=== PATIENT | female | born 1995 | race Caucasian/White ===

== ENCOUNTER 2016-09-21 10:53 | Emergency (ER) | payer BC, OTHER ==
[~2016-09-21] VITALS: Ht 162.6 cm; Wt 93.0 kg
[~2016-09-21 10:53] MED LIST: CETI10CA PO; CETI10TA17 PO; DCS100C PO; FLT4413 INH; HYDR-3714 PO; IBUP800T26 PO; LEVA15HF2 IH; METO25TA PO; MNTL10T PO; MONT10TA24 PO; MTP25TSR PO; RANI300T4 PO; RNT150T PO
--- NOTE | 2016-09-21 12:03 | ED Headache ---
General Chief Complaint: Head/Cervical Problems Stated Complaint: HEADACHE/ELEV BP Nursing Triage Note: PT C/O HICKS AND HTN SINCE THIS AM. Nursing Sepsis Screen: No Definite Risk Source: patient, family Exam Limitations: no limitations History of Present Illness Time seen by provider: 12:02 Initial Comments To ER with reports of a frontal headache and high blood pressure that occurred this morning. She states that she's had frontal headache for the past 2-3 days intermittently. She denies fevers, injury, nasal congestion. She states the pain was severe this morning and her blood pressure was 160/90 which was abnormal for her. She took some Tylenol and Motrin at home and her pain is rated at 2 out of 10. no personal or family history of migraines. She did have some intermittent nausea and equal bowel movements but it was not diarrhea. States that her grandmother has colitis and she is concerned she may also have colitis Timing/Duration: waxing and waning Severity/Quality: constant, pressure, throbbing Location: frontal Prior Headaches/Recent Trauma: no recent headache/trauma Associated Symptoms: denies symptoms nausea/vomiting Allergies and Home Medications Allergies Coded Allergies: codeine (Verified Allergy, Intermediate, 09/27/13) Home Medications Cetirizine Hcl 10 Mg Capsule 10 MG PO DAILY (Reported) Metoprolol Succinate 25 Mg Tab.sr.24h 25 MG PO DAILY (Reported) Constitutional: see HPINo chills, No fever Eyes: No Symptoms Reported Ears, Nose, Mouth, Throat: no symptoms reported Respiratory: no symptoms reported Cardiovascular: no symptoms reported Gastrointestinal: No abdominal pain Genitourinary: no symptoms reported Musculoskeletal: no symptoms reported Skin: no symptoms reported Psychiatric/Neurological: No Symptoms Reported Past Lvddzyo-Jigudq-Nxdmyz Hx Patient Social History Alcohol Use: Denies Use Recreational Drug Use: No Smoking Status: Never a Smoker Recent Foreign Travel: No Contact w/Someone Who Travel: No Recent Infectious Disease Expo: No Recent Hopitalizations: No Physical Abuse Screen: No Sexual Abuse: No Immunizations Up To Date Date of Influenza Vaccine: Jun 21, 2016 Surgeries HX Surgeries: Yes (TEETH) Surgeries: Appendectomy Respiratory Hx Respiratory Disorders: Yes Respiratory Disorders: Asthma Cardiovascular Hx Cardiac Disorders: Yes Cardiac Disorders: Hypertension Neurological Hx Neurological Disorders: No Genitourinary Hx Genitourinary Disorders: Yes Genitourinary Disorders: UTI-Chronic Gastrointestinal Hx Gastrointestinal Disorders: No Gastrointestinal Disorders: Gastroesophageal Reflux Musculoskeletal Hx Musculoskeletal Disorders: No Endocrine Hx Endocrine Disorders: No HEENT HX ENT Disorders: No Cancer Hx Cancer: No Psychosocial Hx Psychiatric Problems: No Integumentary HX Skin/Integumentary Disorder: No Blood Transfusions Hx Blood Disorders: No Adverse Reaction to a Blood Tr: No Family Medical History Family Medial History: Cancer 03 FATHER (prostate) 03 MOTHER (thyroid) Family history: Thyroid disorder 03 MOTHER (thyroid cancer) Prostate cancer Physical Exam Vital Signs Vital Sign - Last 12Hours 09/21/16 11:35 Temp 97.0 Pulse 89 Resp 16 B/P 145/96 Pulse Ox 98 O2 Delivery Room Air Capillary Refill : Less Than 3 Seconds General Appearance: WD/WN no apparent distress HEENT: PERRL/EOMI normal ENT inspection TMs normal Neck: non-tender full range of motion Respiratory: normal breath sounds no respiratory distress no accessory muscle use Gastrointestinal: normal bowel sounds non tender soft Extremities: normal range of motion non-tender Psychiatric: alert oriented x 3 Crainal Nerves: normal hearing normal speech PERRL Skin: normal color warm/dry Progress/Results/Core Measures Results/Orders Lab Results Laboratory Tests Test 09/21/16 12:13 09/21/16 12:22 Range/Units Anion Gap 6 5-14 MMOL/L BUN/Creatinine Ratio 23 Basophils # (Auto) 0.0 0.0-0.1 10^3/uL Basophils (%) (Auto) 0 0-10 % Blood Urea Nitrogen 18 7-18 MG/DL Calcium Level 8.9 8.5-10.1 MG/DL Carbon Dioxide Level 23 21-32 MMOL/L Chloride Level 109 H 98-107 MMOL/L Creatinine 0.78 0.60-1.30 MG/DL Eosinophils # (Auto) 0.1 0.0-0.3 10^3/uL Eosinophils (%) (Auto) 1 0-10 % Erythrocyte Sedimentation Rate 22 H 0-20 MM/HR Estimat Glomerular Filtration Rate > 60 Glucose Level 98 70-105 MG/DL Hematocrit 39 35-52 % Hemoglobin 12.8 11.5-16.0 G/DL Lymphocytes # (Auto) 1.3 1.0-4.0 X 10^3 Lymphocytes (%) (Auto) 10 L 12-44 % Mean Corpuscular Hemoglobin 30 25-34 PG Mean Corpuscular Hemoglobin Concent 33 32-36 G/DL Mean Corpuscular Volume 92 80-99 FL Mean Platelet Volume 10.2 7.4-10.4 FL Monocytes # (Auto) 0.7 0.0-1.0 X 10^3 Monocytes (%) (Auto) 5 0-12 % Neutrophils # (Auto) 11.2 H 1.8-7.8 X 10^3 Neutrophils (%) (Auto) 84 H 42-75 % Platelet Count 345 130-400 10^3/uL Potassium Level 4.0 3.6-5.0 MMOL/L Red Blood Count 4.27 L 4.35-5.85 10^6/uL Red Cell Distribution Width 14.4 10.0-14.5 % Sodium Level 138 135-145 MMOL/L Thyroid Stimulating Hormone (TSH) 2.03 0.35-4.94 UIU/ML White Blood Count 13.3 H 4.3-11.0 10^3/uL Urine Bacteria TRACE /HPF Urine Bilirubin NEGATIVE NEGATIVE Urine Casts NONE /LPF Urine Clarity CLEAR Urine Color YELLOW Urine Crystals NONE /LPF Urine Culture Indicated NO Urine Glucose (UA) NEGATIVE NEGATIVE Urine Ketones NEGATIVE NEGATIVE Urine Leukocyte Esterase NEGATIVE NEGATIVE Urine Mucus NEGATIVE /LPF Urine Nitrite NEGATIVE NEGATIVE Urine Protein NEGATIVE NEGATIVE Urine RBC RARE /HPF Urine RBC (Auto) NEGATIVE NEGATIVE Urine Specific [place] 1.015 L 1.016-1.022 Urine Squamous Epithelial Cells 0-2 /HPF Urine Urobilinogen NORMAL NORMAL MG/DL Urine WBC NONE /HPF Urine pH 6.5 5-9 My Orders Orders-ANNA ASH PHOTOCOPYING EQUIPMENT MECHANIC Cbc With Automated Diff (09/21/16 11:59) Ua Culture If Indicated (09/21/16 11:59) Urine Bedside (09/21/16 11:59) Basic Metabolic Panel (09/21/16 11:59) Erythrocyte Sedimentation Rate (09/21/16 11:59) Ct Head Wo (09/21/16 11:59) Thyroid Stimulating Hormone (09/21/16 11:59) Vital Signs/I&O Vital Sign - Last 12Hours 09/21/16 11:35 Temp 97.0 Pulse 89 Resp 16 B/P 145/96 Pulse Ox 98 O2 Delivery Room Air Blood Pressure Mean: 112 Diagnostic Imaging Diagonstic Imaging: CT Plain Films/CT/US/NM/MRI: head Comments NAME: JUAN SERRA [facility] REC#: [id number] PT STATUS: REG ER : 1995 PHYSICIAN: ANNA ASH APRN ADMIT DATE: 09/21/16/ER Signed Date of Exam:09/21/16 CT HEAD WO PROCEDURE: CT head without contrast. TECHNIQUE: Multiple contiguous axial images were obtained through the brain without the use of intravenous contrast. INDICATION: Elevated blood pressure. Headache. FINDINGS: There is no intracranial hemorrhage, edema, or mass effect. The brain parenchyma and verduzco/white matter differentiation are preserved. There is no hydrocephalus. No extra-axial fluid collection is seen. The calvarium, paranasal sinuses, and orbits (visualized portions) appear grossly unremarkable. IMPRESSION: Unremarkable exam. Dictated by: Dictated on workstation # [id number] Dict: 09/21/16 1235 Trans: 09/21/16 1240 [id number] Interpreted by: JACQUELIN CARRILLO MD Electronically signed by: JACQUELIN CARRILLO MD 09/21/16 1242 Departure Impression Impression: Primary Impression: Acute headache Qualified Code: G44.209 - Tension-type headache, unspecified, not intractable Disposition: HOME, SELF-CARE Condition: Stable Departure-Patient Inst. Decision time for Depature: 12:56 Referrals: DAVID METCALF MD (PCP/Family) Primary Care Physician Patient Instructions: Headache, Adult (DC) Add. Discharge Instructions: 1. Return to ER for any concerns 2. Medication as directed 3. Follow-up with your doctor later this week All discharge instructions reviewed with patient and/or family. Voiced understanding. Scripts Butalb/Acetaminophen/Caffeine (Fioricet 50-300-40 mg Capsule)1 Each Capsule1 Each PO Q4H PRN severe headache #5 CAP Prov:ANNA ASH APRN 09/21/16 Work/School Note: Work Release Form Date Seen in the Emergency Department: Sep 21, 2016 Return to Work: Sep 22, 2016 Restrictions: No Restrictions ANNA ASH APRN Sep 21, 2016 12:03
[2016-09-21 12:18] LABS: BASOPHILS % (AUTO) 0 % (0-10); EOSINOPHILS # (AUTO) 0.1 10^3/uL (0.0-0.3); EOSINOPHILS % (AUTO) 1 % (0-10); LYMPHOCYTES # (AUTO) 1.3 X 10^3 (1.0-4.0); LYMPHOCYTES % (AUTO) 10 % (12-44); MEAN CORPUSCULAR HEMOGLOBIN 30 PG (25-34); MEAN CORPUSCULAR HGB CONC 33 G/DL (32-36); MEAN CORPUSCULAR VOLUME 92 FL (80-99); MEAN PLATELET VOLUME 10.2 FL (7.4-10.4); MONOCYTES # (AUTO) 0.7 X 10^3 (0.0-1.0); MONOCYTES % (AUTO) 5 % (0-12); NEUTROPHILS # (AUTO) 11.2 X 10^3 (1.8-7.8); NEUTROPHILS % (AUTO) 84 % (42-75); PLATELET COUNT 345 10^3/uL (130-400); RED BLOOD COUNT 4.27 10^6/uL (4.35-5.85); RED CELL DISTRIBUTION WIDTH 14.4 % (10.0-14.5); WHITE BLOOD COUNT 13.3 10^3/uL (4.3-11.0)
[2016-09-21 12:29] LABS: BILIRUBIN,URINE NEGATIVE (NEGATIVE); KETONES,URINE NEGATIVE (NEGATIVE); LEUKOCYTE ESTERASE ,URINE NEGATIVE (NEGATIVE); NITRITE,URINE NEGATIVE (NEGATIVE); PH,URINE 6.5 (5-9); PROTEIN,URINE NEGATIVE (NEGATIVE); UROBILINOGEN,URINE NORMAL (NORMAL)
[2016-09-21 12:32] LABS: ANION GAP 6 MMOL/L (5-14); BLOOD UREA NITROGEN 18 MG/DL (7-18); BUN/CREATININE RATIO 23; CALCIUM 8.9 MG/DL (8.5-10.1); CARBON DIOXIDE 23 MMOL/L (21-32); CHLORIDE 109 MMOL/L (98-107); CREATININE SERUM 0.78 MG/DL (0.60-1.30); GFR ESTIMATED > 60; GLUCOSE 98 MG/DL (70-105); SODIUM 138 MMOL/L (135-145)
[2016-09-21 12:37] LABS: SQUAMOUS EPITHELIAL CELL,UR 0-2 /HPF
[2016-09-21 12:40] LABS: ERYTHROCYTE SEDIMENTATION RATE 22 MM/HR (0-20)
--- NOTE | 2016-09-21 12:40 | Diagnostic Imaging Report ---
PROCEDURE: CT head without contrast. TECHNIQUE: Multiple contiguous axial images were obtained through the brain without the use of intravenous contrast. INDICATION: Elevated blood pressure. Headache. FINDINGS: There is no intracranial hemorrhage, edema, or mass effect. The brain parenchyma and verduzco/white matter differentiation are preserved. There is no hydrocephalus. No extra-axial fluid collection is seen. The calvarium, paranasal sinuses, and orbits (visualized portions) appear grossly unremarkable. IMPRESSION: Unremarkable exam. Dictated by: Dictated on workstation # [id number]
[2016-09-21 12:54] LABS: THYROID STIMULATING HORMONE 2.03 UIU/ML (0.35-4.94)
[2016-09-21] MEDS ORDERED: BUTA1CAP39 PO (12:57)
[2016-09-21 13:06] VITALS: BP 145/96
== END 2016-09-21 13:06 | disposition home or self-care (01) ==
LOC: EDUNIT# 10:53 → ER 10:55
DX: R51 Headache (principal); I10 Essential (primary) hypertension; Z79.899 Other long term (current) drug therapy
CPT/HCPCS: 36415; 70450; 80048; 81000; 84443; 84703; 85025; 85652

== ENCOUNTER → 2016-10-12 | Outpatient (CLI) | payer OTHER ==
[~2016-10-12] MED LIST changes: +BUTA1CAP39 PO
--- NOTE | 2016-10-12 12:55 | Diagnostic Imaging Report ---
Renal ultrasound. INDICATION: Essential hypertension. Rule out reflux. FINDINGS: The right kidney is 11.2 cm and the left kidney is 8.4 cm in length. There is no hydronephrosis. There is a 3 x 2.4 cm hypoechoic lesion seen in the mid left kidney of uncertain etiology. No definite internal vascularity is seen with color Doppler. This is not seen on transverse images and is possibly artifactual or related to irregularity of the renal cortex from scarring. The urinary bladder appears unremarkable. IMPRESSION: 1. No hydronephrosis. 2. A 3 cm hypoechoic lesion seen in the mid left kidney not well demonstrated on transverse images could be secondary to lobulated kidney contour and scarring rather than a true mass. Correlation with abdominal MRI without and with contrast/kidney mass protocol is recommended. Dictated by: Dictated on workstation # [id number]
== END ==
LOC: RAD 11:42
PROVIDERS: ATTEND Family Medicine
DX: I10 Essential (primary) hypertension (principal); Z87.448 Personal history of other diseases of urinary system; N28.9 Disorder of kidney and ureter, unspecified
CPT/HCPCS: 76770

== ENCOUNTER → 2016-10-19 | Outpatient (CLI) | payer OTHER ==
[~2016-10-19] MED LIST changes: +GADOBUTROL 10 MMOL/10 ML (GADAVIST) VIAL IV ONE
--- NOTE | 2016-10-19 12:21 | Diagnostic Imaging Report ---
PROCEDURE: MR imaging abdomen with and without contrast. TECHNIQUE: Multiplanar, multisequence MR imaging of the abdomen was performed with and without contrast. INDICATION: Left kidney mass. CONTRAST: 10 mL of Gadavist is administered intravenously. FINDINGS: There is a lobulated appearance of the contour of the kidneys with the left kidney smaller than the right kidney and with multiple calyceal ectasia and diverticula seen in the areas of scarring. This is probably sequela of a prior UTIs. As a result of the multiple cortical focal areas of thinning and scarring, there is a lobulated contour to the kidneys. There is no discrete mass, however, that has a distinct T1 or T2 signal abnormality or different pattern of the enhancement compared to the rest of the parenchyma to suggest a mass. The findings seen on recent ultrasound in the left kidney are probably related to imaging of an area of scar or calyceal diverticulum. The abdominal aorta is normal in caliber. No para-aortic significantly enlarged lymph nodes are seen. There is no bone marrow signal abnormality seen. The spleen is not enlarged. The visualized portions of the liver demonstrate no significant abnormality. The pancreas appears unremarkable. IMPRESSION: There are multiple scars in the kidneys with ocnl-lg-bzvppqwn atrophy of the left kidney. Multiple calyceal diverticula are also seen secondary to scarring. This is probably sequela of old recurrent infections. No hydronephrosis. No suspicious mass identified. Dictated by: Dictated on workstation # [id number]
== END ==
LOC: RAD 10:08
PROVIDERS: ATTEND Family Medicine
DX: N26.1 Atrophy of kidney (terminal) (principal); N28.89 Other specified disorders of kidney and ureter
CPT/HCPCS: 74183

== ENCOUNTER → 2018-10-31 | Outpatient (CLI) | payer OTHER ==
[2018-10-31 15:10] LABS: BUN/CREATININE RATIO 9; CALCIUM 9.1 MG/DL (8.5-10.1); CARBON DIOXIDE 23 MMOL/L (21-32); CHLORIDE 107 MMOL/L (98-107); CREATININE SERUM 1.01 MG/DL (0.60-1.30); GFR ESTIMATED > 60; GLUCOSE 93 MG/DL (70-105); POTASSIUM 3.7 MMOL/L (3.6-5.0); SODIUM 138 MMOL/L (135-145)
--- NOTE | 2018-10-31 15:18 | Diagnostic Imaging Report ---
PROCEDURE: CT urinary tract, rule out kidney stone. TECHNIQUE: Multiple contiguous axial images were obtained through the abdomen and pelvis without the use of intravenous contrast. INDICATION: Left flank pain. COMPARISON: 09/27/2013 FINDINGS: Evaluation of the abdominal viscera is mildly limited without contrast. Lower chest: The lung bases are clear. No pericardial or pleural effusion. Peritoneum: No free intraperitoneal air or fluid. Liver and biliary system: Unenhanced liver is normal. Layering hyperdensity within the gallbladder may represent sludge or stones. No biliary duct dilatation. Spleen and Pancreas: Spleen is normal. Unenhanced pancreas is grossly normal. Adrenals: Normal. tract: No renal or ureteral calculi. There are a few regions of cortical thinning in the upper pole of the left kidney that are chronic in nature. No obstructive uropathy. Urinary bladder is normally filled without wall thickening. Uterus and ovaries are normal in appearance. Dominant ovarian follicle on the right measures 3.1 x 2.5 cm. GI tract: Stomach is decompressed. No bowel obstruction. No pericolonic inflammatory changes. Appendectomy. Vasculature and Lymph nodes: Normal caliber aorta. No abdominal or pelvic lymphadenopathy. Musculoskeletal: No concerning osseous lesion. IMPRESSION: 1. No urinary tract calculi or obstructive uropathy. 2. Appendectomy. 3. Physiologic appearance of the uterus and ovaries. Dictated by: Dictated on workstation # [id number]
== END ==
LOC: RAD 14:40
PROVIDERS: ATTEND Family Medicine
DX: R10.9 Unspecified abdominal pain (principal); Z90.49 Acquired absence of other specified parts of digestive tract
CPT/HCPCS: 36415; 74176; 80048

== ENCOUNTER 2019-03-01 16:23 | Outpatient (RCR) | payer OTHER ==
[2019-02-14 17:10] LABS: BASOPHILS # (AUTO) 0.1 10^3/uL (0.0-0.1); BASOPHILS % (AUTO) 1 % (0-10); EOSINOPHILS # (AUTO) 0.5 10^3/uL (0.0-0.3); EOSINOPHILS % (AUTO) 5 % (0-10); HEMATOCRIT 39 % (35-52); HEMOGLOBIN 12.4 G/DL (11.5-16.0); LYMPHOCYTES # (AUTO) 2.8 X 10^3 (1.0-4.0); LYMPHOCYTES % (AUTO) 30 % (12-44); MEAN CORPUSCULAR HEMOGLOBIN 29 PG (25-34); MEAN CORPUSCULAR HGB CONC 32 G/DL (32-36); MEAN CORPUSCULAR VOLUME 92 FL (80-99); MEAN PLATELET VOLUME 10.1 FL (7.4-10.4); MONOCYTES # (AUTO) 0.8 X 10^3 (0.0-1.0); MONOCYTES % (AUTO) 9 % (0-12); NEUTROPHILS # (AUTO) 5.3 X 10^3 (1.8-7.8); NEUTROPHILS % (AUTO) 55 % (42-75); PLATELET COUNT 324 10^3/uL (130-400); RED CELL DISTRIBUTION WIDTH 15.8 % (10.0-14.5); WHITE BLOOD COUNT 9.6 10^3/uL (4.3-11.0)
[~2019-03-01 16:23] MED LIST changes: -GADOBUTROL 10 MMOL/10 ML (GADAVIST) VIAL IV ONE
== END 2019-05-10 | disposition home or self-care (01) ==
LOC: ONC 16:23
PROVIDERS: ATTEND Internal Medicine Hematology & Oncology
DX: D72.829 Elevated white blood cell count, unspecified (principal); J45.909 Unspecified asthma, uncomplicated; I10 Essential (primary) hypertension; K21.9 Gastro-esophageal reflux disease without esophagitis; E66.01 Morbid (severe) obesity due to excess calories; Z68.42 Body mass index [BMI] 45.0-49.9, adult; Z79.899 Other long term (current) drug therapy
CPT/HCPCS: 81206; 81270; 85025; 99214

== ENCOUNTER 2019-05-31 16:18 | Outpatient (RCR) | payer OTHER ==
[2019-05-31 16:28] LABS: BASOPHILS # (AUTO) 0.1 10^3/uL (0.0-0.1); BASOPHILS % (AUTO) 1 % (0-10); EOSINOPHILS # (AUTO) 0.3 10^3/uL (0.0-0.3); EOSINOPHILS % (AUTO) 3 % (0-10); HEMATOCRIT 37 % (35-52); HEMOGLOBIN 11.9 G/DL (11.5-16.0); LYMPHOCYTES # (AUTO) 2.6 X 10^3 (1.0-4.0); LYMPHOCYTES % (AUTO) 23 % (12-44); MEAN CORPUSCULAR HEMOGLOBIN 29 PG (25-34); MEAN CORPUSCULAR HGB CONC 32 G/DL (32-36); MEAN CORPUSCULAR VOLUME 91 FL (80-99); MONOCYTES % (AUTO) 9 % (0-12); NEUTROPHILS # (AUTO) 7.3 X 10^3 (1.8-7.8); NEUTROPHILS % (AUTO) 65 % (42-75); PLATELET COUNT 372 10^3/uL (130-400); RED CELL DISTRIBUTION WIDTH 14.3 % (10.0-14.5); WHITE BLOOD COUNT 11.3 10^3/uL (4.3-11.0)
== END 2019-08-29 | disposition home or self-care (01) ==
LOC: ONC 16:18
PROVIDERS: ATTEND Internal Medicine Hematology & Oncology
DX: D72.829 Elevated white blood cell count, unspecified (principal); J45.909 Unspecified asthma, uncomplicated; I10 Essential (primary) hypertension; K21.9 Gastro-esophageal reflux disease without esophagitis; E66.01 Morbid (severe) obesity due to excess calories; Z68.42 Body mass index [BMI] 45.0-49.9, adult; Z79.899 Other long term (current) drug therapy
CPT/HCPCS: 36415; 85025; 99213

== ENCOUNTER 2020-02-21 05:43 | Outpatient (RCR) | payer OTHER ==
[~2020-02-21] VITALS: Ht 160 cm; Wt 133.6 kg
[~2020-02-21 05:43] MED LIST changes: +FEXO180T84 PO; +NALT1TAB PO; +OMEP20CA18 PO
[2020-02-26] MEDS ORDERED: SUCR1TAB36 PO (13:33)
[2020-02-26] MEDS ORDERED: PANT40TA2 PO (13:33)
== END 2020-02-21 15:06 | disposition home or self-care (01) ==
LOC: PREOP 05:43
PROVIDERS: ATTEND Surgery
DX: Z01.818 Encounter for other preprocedural examination (principal); R11.2 Nausea with vomiting, unspecified; Z20.828 Contact with and (suspected) exposure to other viral communicable diseases
CPT/HCPCS: 87635

== ENCOUNTER 2020-02-26 12:27 | Day surgery (SDC) | payer OTHER ==
[2020-02-26 12:30] VITALS: BP 128/96
[2020-02-26] MEDS ORDERED: LACTATED RINGERS 1,000 ML IV STA (12:30)
[2020-02-26] MEDS ORDERED: LACTATED RINGERS 1,000 ML IV ONE (12:33)
[2020-02-26] MEDS ORDERED: MIDAZOLAM 2 MG/2 ML (VERSED) VIAL ONE (12:34)
[2020-02-26] MEDS ORDERED: proPOfol 200 MG/20 ML (DIPRIVAN) VIAL IV ONE ×2 (12:34→13:17)
--- NOTE | 2020-02-26 13:13 | Progress Note-Pre Operative ---
Pre-Operative Progress Note H&P Reviewed The H&P was reviewed, patient examined and no changes noted. Date Seen by Provider: Feb 26, 2020 Time Seen by Provider: 13:13 Date H&P Reviewed: Feb 26, 2020 Time H&P Reviewed: 13:13 Pre-Operative Diagnosis: n/v epigastric abd pain JOSEPH BAILON DO Feb 26, 2020 13:13
[2020-02-26 13:20] VITALS: BP 146/63
[2020-02-26 13:25] VITALS: BP 136/62
[2020-02-26 13:30] VITALS: BP 136/58
--- NOTE | 2020-02-26 13:31 | Progress Note-Post Operative ---
Post-Operative Progess Note Surgeon (s)/Florist Designer (s) Surgeon JOSEPH BAILON DO Florist Designer: na Pre-Operative Diagnosis n/v epigastric abd pain Post-Operative Diagnosis duodenitis, gastritis Procedure & Operative Findings Date of Procedure 02/26/20 Procedure Performed/Findings egd c biopsies Anesthesia Type per [facility] Estimated Blood Loss Estimated blood loss (mL): none Specimens/Packing Specimens Removed duodenum, antrum, ge JOSEPH BAILON DO Feb 26, 2020 13:31
[2020-02-26] MEDS ORDERED: SUCR1TAB36 PO (13:33)
[2020-02-26] MEDS ORDERED: PANT40TA2 PO (13:33)
--- NOTE | 2020-02-26 13:33 | Discharge Inst-Simple/Standard ---
Discharge Inst-Standard Discharge Medications New, Converted or Re-Newed RX: Transmitted to Pharmacy Patient Instructions/Follow Up Plan of Care/Instructions/FU: 2 weeks Renzo Activity as Tolerated: Yes Discharge Diet: Regular Diet JOSEPH BAILON DO Feb 26, 2020 13:33
[2020-02-26 13:35] VITALS: BP 136/58
--- NOTE | 2020-02-26 13:54 | Anesthesia-General Post-Op ---
MAC Patient Condition Mental Status/LOC: Same as Preop Cardiovascular: Satisfactory Nausea/Vomiting: Absent Respiratory: Satisfactory Pain: Controlled Complications: Absent Post Op Complications Complications None Follow Up Care/Instructions Patient Instructions None needed. Anesthesiology Discharge Order Discharge Order Patient is doing well, no complaints, stable vital signs, no apparent adverse anesthesia problems. MAKAYLA GUZMAN DO Feb 26, 2020 13:53
[2020-02-26 14:06] VITALS: BP 125/68
--- NOTE | 2020-02-26 20:44 | OPERATIVE REPORT ---
DATE OF SERVICE: 02/26/2020 PREOPERATIVE DIAGNOSES: Nausea, vomiting and epigastric abdominal pain. POSTOPERATIVE DIAGNOSES: Duodenitis and gastritis. PROCEDURE PERFORMED: EGD with biopsy. SURGEON: Joseph Muller DO ANESTHESIA: Per MDA. ESTIMATED BLOOD LOSS: None. COMPLICATIONS: None. INDICATIONS: The patient is a 24-year-old female with nausea, vomiting, epigastric abdominal pain continuing to be persistent. She understands the risks and benefits of procedure and wished to proceed with procedure. Consent was signed in the chart. DESCRIPTION OF PROCEDURE: The patient was taken to the endoscopy suite and placed in the left lateral recumbent position. Timeout was performed. The scope was inserted in mouth, down the esophagus, stomach and into the duodenum. The second portion of duodenum had normal appearance. The scope was slowly retracted back and the first portion of duodenum had some slight inflammatory changes and tissue texture changes suggestive of duodenitis. Biopsy was obtained. Scope was then continuously retracted back into the stomach where it was further insufflated. The antrum had some erythematous changes and questionable tears maybe a healing ulcer. Biopsy was obtained. The scope was then retroflexed noting no other pathology. Scope was returned to its normal position, slowly withdrawn to distal esophagus, which had a fairly normal appearance. No polyps, masses, ulcerations or erythematous changes. Biopsy of the GE junction was obtained. Scope was then slowly retracted back until completely removed noting no other pathology. The patient tolerated the procedure well without any complications. She was taken to the recovery room in stable condition. RECOMMENDATIONS: The patient will be started on Protonix 40 mg daily and Carafate 1 gram four times a day and see how her symptoms are improving. We will stop the omeprazole at this time. Further recommendations pending pathology and how her symptoms are doing. Job ID: [id number] DocumentID: [id number] Dictated Date: 02/26/2020 13:35:46 Property Maintenance Supervisor Date: 02/26/2020 15:12:36 Dictated By: JOSEPH MULLER DO
== END 2020-02-26 14:15 | disposition home or self-care (01) ==
LOC: ENDO 12:27
PROVIDERS: ATTEND Surgery
DX: K29.80 Duodenitis without bleeding (principal); K29.70 Gastritis, unspecified, without bleeding; I89.0 Lymphedema, not elsewhere classified; K31.9 Disease of stomach and duodenum, unspecified; I10 Essential (primary) hypertension; J45.909 Unspecified asthma, uncomplicated; K21.9 Gastro-esophageal reflux disease without esophagitis; E66.01 Morbid (severe) obesity due to excess calories; Z88.5 Allergy status to narcotic agent; Z88.8 Allergy status to other drugs, medicaments and biological substances; Z79.899 Other long term (current) drug therapy
CPT/HCPCS: 84703; 88305

== ENCOUNTER → 2020-03-24 | Outpatient (CLI) | payer OTHER ==
[~2020-03-24] MED LIST changes: +CATHETER FLUSH 10 ML SYR IV PRN; +PANT40TA2 PO; +SUCR1TAB36 PO
--- NOTE | 2020-03-24 12:51 | Diagnostic Imaging Report ---
INDICATION: Epigastric pain. Patient was administered 5.5 mCi technetium 99m Choletec intravenously and imaging over the abdomen was performed. At 60 minutes patient ingested 1 can of Ensure and a gallbladder ejection fraction was calculated. There is homogeneous uptake of activity by the liver. There is prompt excretion of activity into the gallbladder and common duct. Normal passage of activity into the small bowel is noted. The gallbladder ejection fraction is low at 28%. Normal values are 35% or greater. IMPRESSION: 1. Patent cystic duct and common bile duct. 2. Low gallbladder ejection fraction of 28%. Dictated by: Dictated on workstation # [id number]
== END ==
LOC: CARD 09:34
PROVIDERS: ATTEND Surgery
DX: R10.13 Epigastric pain (principal)
CPT/HCPCS: 78227; A9537

== ENCOUNTER 2020-04-22 12:15 | Outpatient (RCR) | payer OTHER ==
[~2020-04-22] VITALS: Ht 160 cm; Wt 127.3 kg
[~2020-04-22 12:15] MED LIST changes: -CATHETER FLUSH 10 ML SYR IV PRN
== END 2020-04-22 12:41 | disposition home or self-care (01) ==
LOC: PREOP 12:15
PROVIDERS: ATTEND Surgery
DX: Z01.818 Encounter for other preprocedural examination (principal)

== ENCOUNTER 2020-05-01 06:14 | Day surgery (SDC) | payer OTHER ==
[2020-05-01] VITALS (11 sets, daily range): BP systolic 116–134; BP diastolic 65–89
[~2020-05-01] VITALS: Ht 160 cm; Wt 127.3 kg
[2020-05-01] MEDS ORDERED: ONDANSETRON 4 MG/2 ML (SDV) Z0FRAN ONE (06:39)
[2020-05-01] MEDS ORDERED: GLYCOPYRROLATE 0.2 MG/ML (ROBINUL) 2 ML VIAL ONE (06:39)
[2020-05-01] MEDS ORDERED: ROCURONIUM 10 MG/ML 5 ML SYRINGE IV ONE ×2 (06:39→08:50)
[2020-05-01] MEDS ORDERED: fentaNYL INJECTION 100 MCG/2 ML AMP ONE (06:39)
[2020-05-01] MEDS ORDERED: NEOSTIGMINE 3 MG/3 ML VIAL ONE (06:39)
[2020-05-01] MEDS ORDERED: LIDOCAINE PF 2% 5 ML (XYLOCAINE) VIAL ONE (06:39)
[2020-05-01] MEDS ORDERED: MIDAZOLAM 2 MG/2 ML (VERSED) VIAL ONE (06:39)
[2020-05-01] MEDS ORDERED: proPOfol 200 MG/20 ML (DIPRIVAN) VIAL IV ONE (06:39)
[2020-05-01] MEDS ORDERED: SEVOFLURANE (ULTANE) 15 ML INHAL SOLN ONE ×5 (06:39→08:48)
[2020-05-01] MEDS: LACTATED RINGERS 1,000 ML IV PRN ×2 (06:50→09:18)
[2020-05-01] MEDS ORDERED: BUP/EPI 0.5% 1:200,000 (MARCAINE) 10ML VIAL IJ ONE (07:12)
[2020-05-01] MEDS ORDERED: IOPAMIDOL 61% 30 ML (ISOVUE 300) VIAL ONE (07:12)
[2020-05-01] MEDS ORDERED: ceFAZolin 2 GM IV Premixed 50 ML ONE (07:13)
[2020-05-01] MEDS ORDERED: ceFAZolin 2 GM IV Premixed 50 ML IV ONE (07:15)
--- NOTE | 2020-05-01 07:43 | Progress Note-Pre Operative ---
Pre-Operative Progress Note H&P Reviewed The H&P was reviewed, patient examined and no changes noted. Date Seen by Provider: May 01, 2020 Time Seen by Provider: 07:35 Date H&P Reviewed: May 01, 2020 Time H&P Reviewed: 07:35 Pre-Operative Diagnosis: ruq abd pain, biliary dyskinesia JOSEPH BAILON DO May 01, 2020 07:43
[2020-05-01 07:52] LABS: HEMOGLOBIN 11.1 G/DL (11.5-16.0); MEAN CORPUSCULAR HEMOGLOBIN 27 PG (25-34); WHITE BLOOD COUNT 11.2 10^3/uL (4.3-11.0)
[2020-05-01 07:53] LABS: BASOPHILS # (AUTO) 0.1 10^3/uL (0.0-0.1); BASOPHILS % (AUTO) 1 % (0-10); EOSINOPHILS # (AUTO) 0.5 10^3/uL (0.0-0.3); EOSINOPHILS % (AUTO) 5 % (0-10); HEMATOCRIT 35 % (35-52); LYMPHOCYTES # (AUTO) 2.2 X 10^3 (1.0-4.0); LYMPHOCYTES % (AUTO) 19 % (12-44); MEAN CORPUSCULAR HGB CONC 32 G/DL (32-36); MEAN CORPUSCULAR VOLUME 86 FL (80-99); MEAN PLATELET VOLUME 9.5 FL (7.4-10.4); MONOCYTES % (AUTO) 9 % (0-12); NEUTROPHILS # (AUTO) 7.5 X 10^3 (1.8-7.8); NEUTROPHILS % (AUTO) 67 % (42-75); PLATELET COUNT 400 10^3/uL (130-400); RED CELL DISTRIBUTION WIDTH 16.1 % (10.0-14.5)
[2020-05-01] MEDS ORDERED: HYDR-4226 PO (09:08)
--- NOTE | 2020-05-01 09:09 | Discharge Inst-Simple/Standard ---
Discharge Inst-Standard Discharge Medications New, Converted or Re-Newed RX: RX on Chart Patient Instructions/Follow Up Plan of Care/Instructions/FU: 2 weeks dom Activity as Tolerated: No Discharge Diet: Regular Diet Other Inst to Patient Follow up Appt: Make appointment for 2 weeks. Instructions: No lifting greater than 10 pounds. No strenuous activity. May shower in 24 hours, no tub bath or soaking. Use incentive spirometer at home as directed. No Smoking Skin/Wound Care: You have special glue over incision, it will fall off on it's own. Symptoms to Report: Appetite Changes, Extremity Discoloration, Numbness/Tingling, Swelling Increased, Bleeding Excessive, Eyesight Changes, Pain Increased, Urine Color Change, Constipation(Persistent), Fever over 101 degree F, Pain/Pressure in ches t, Urinating Difficulty, Cough Up/Vomit Blood, Heart Beat Irreg/Pounding, Pain/Pressure in jaw, Vaginal Bleeding Increase, Cramps in feet or legs, Lightheadedness, Pain/Pressure in shoulder, Diarrhea(Persistent), Memory Changes Suddenly, Questions/Concerns, Weight gain consecutive days, Dizziness/Fainting, Nausea/Vomiting, Shortness of Breath, Weight gain over 2 pounds. If eyes or skin turn yellow notify physician. If questions or concerns contact your physician Or seek help at emergency department. JOSEPH BAILON DO May 01, 2020 09:09
--- NOTE | 2020-05-01 09:11 | Progress Note-Post Operative ---
Post-Operative Progess Note Surgeon (s)/Budget Analyst (s) Surgeon JOSEPH BAILON DO Budget Analyst: Dr. Weir to assist in retraction dissection and closure. Pre-Operative Diagnosis ruq abd pain, biliary dyskinesia Post-Operative Diagnosis same Procedure & Operative Findings Date of Procedure 05/01/20 Procedure Performed/Findings PROCEDURE: Laparoscopic cholecystectomy with intraoperative cholangiogram. COMPLICATIONS: None. PROCEDURE: The patient was taken to the operating suite and was prepped and draped in sterile fashion. A surgical pause was performed. Just superior to the umbilicus, a 12 mm incision was made. Dissection was taken down to the fascia, which was then scored and grasped with a Pedro and the abdomen was then entered. A 0 Vicryl suture was placed in a fyoyco-uh-kskea fashion and a Amin trocar was placed and secured. Pneumoperitoneum was achieved. A 5mm trochar place in the subxyphoid and 2 in the right upper quadrant. The gallbladder was then grasped and elevated. Adhesions taken down off of the gallbladder with blunt and cautery dissection. The cystic duct, and cystic artery were then dissected out. Clip was placed on the distal portion of the cystic duct which was then partially transected. An arrow catheter was inserted into the duct. The cholangiogram was then performed. No filing defects and contrast made its way into the duodenum. Catheter removed. Clips were placed on proximal portion of the cystic duct and then the duct was then transected. Clips were placed along the proximal and distal portion of the cystic artery which was then transected. Hook cautery was used to dissect the gallbladder from the gallbladder fossa achieving hemostasis. The gallbladder was placed in an Endobag and removed through the 12 mm trocar site. The abdomen was then reinspected. Copious amounts of irrigation were used to irrigate the abdomen and there were no signs of active bleeding. Hemostasis had been achieved. The 12 mm fascial defect was then closed with 0 Vicryl suture that had been placed in a linwso-tq-dssyx fashion. The abdomen was then desufflated, the trocars were removed. The abdomen was then washed and dried. The skin was then closed using 4-0 Monocryl in a subcuticular fashion. The abdomen was washed and dried and Skin Affix was place over incisions. Patient tolerated the procedure well without any complications and was taken to the recovery room in stable condition. Anesthesia Type general Estimated Blood Loss Estimated blood loss (mL): min Specimens/Packing Specimens Removed gallbladder JOSEPH BAILON DO May 01, 2020 09:11
[2020-05-01] MEDS ORDERED: MEPERIDINE (DEMEROL) INJ 50 MG/ML IVP ONE (09:15)
[2020-05-01] MEDS ORDERED: HYDROmorphone 2 MG/ML VIAL (DILAUDID) IV ONE (09:15)
[2020-05-01] MEDS ORDERED: fentaNYL INJECTION 100 MCG/2 ML AMP IVP ONE (09:15)
[2020-05-01] MEDS ORDERED: ONDANSETRON 4 MG/2 ML (SDV) Z0FRAN IVP PRN (09:15)
[2020-05-01] MEDS ORDERED: morphine INJ 10 MG/ML 1ML (SYR OR VIAL) IVP ONE (09:15)
[2020-05-01] MEDS ORDERED: morphine INJ 10 MG/ML 1ML (SYR OR VIAL) ONE (09:20)
--- NOTE | 2020-05-01 09:21 | Anesthesia-General Post-Op ---
General Patient Condition Mental Status/LOC: Same as Preop Cardiovascular: Satisfactory Nausea/Vomiting: Absent Respiratory: Satisfactory Pain: Controlled Complications: Absent Post Op Complications Complications None Follow Up Care/Instructions Patient Instructions None needed. Anesthesia/Patient Condition Patient Condition Patient is doing well, no complaints, stable vital signs, no apparent adverse anesthesia problems. No complications reported per nursing. SHOBHA MIRANDA CRNA May 01, 2020 09:21
--- NOTE | 2020-05-01 09:28 | Diagnostic Imaging Report ---
INDICATION: Fluoroscopy during intraoperative cholangiogram. Patient has low gallbladder ejection fraction. Fluoroscopy was provided in the OR during intraoperative cholangiogram. 14 seconds of fluoroscopic time was utilized. Images demonstrate contrast being injected via the cystic duct remnant. Intrahepatic and extrahepatic bile ducts are normal caliber. No filling defects are seen. Contrast flows into the duodenum. IMPRESSION: Fluoroscopy during intraoperative cholangiogram. Dictated by: Dictated on workstation # [id number]
[2020-05-01] MEDS ORDERED: HYDROcodone/APAP 5 MG/325 MG (LORTAB) TAB ONE (10:36)
[2020-05-01] MEDS ORDERED: HYDROcodone/APAP 5 MG/325 MG (LORTAB) TAB PO ONE (10:45)
== END 2020-05-01 11:45 | disposition home or self-care (01) ==
LOC: SDC 06:14
PROVIDERS: ATTEND Surgery
DX: K81.1 Chronic cholecystitis (principal); K82.8 Other specified diseases of gallbladder; I10 Essential (primary) hypertension; J45.909 Unspecified asthma, uncomplicated; K21.9 Gastro-esophageal reflux disease without esophagitis; E66.01 Morbid (severe) obesity due to excess calories; Z68.42 Body mass index [BMI] 45.0-49.9, adult; Z79.899 Other long term (current) drug therapy; Z88.5 Allergy status to narcotic agent; Z88.8 Allergy status to other drugs, medicaments and biological substances; Z83.3 Family history of diabetes mellitus; Z80.1 Family history of malignant neoplasm of trachea, bronchus and lung; Z80.8 Family history of malignant neoplasm of other organs or systems
CPT/HCPCS: 36415; 76000; 84703; 85025; 87081

== ENCOUNTER 2021-04-09 05:29 | Outpatient (CLI) | payer OTHER ==
[~2021-04-09] VITALS: Ht 160 cm; Wt 130.6 kg
[~2021-04-09 05:29] MED LIST changes: +HYDR-4226 PO
[2021-04-09] MEDS ORDERED: FAMO-119 PO (13:29)
[2021-04-09] MEDS ORDERED: PANT40TA52 PO (13:29)
== END 2021-04-09 14:04 | disposition home or self-care (01) ==
LOC: PREOP 05:29
PROVIDERS: ATTEND Surgery
DX: Z01.818 Encounter for other preprocedural examination (principal)

== ENCOUNTER 2021-04-16 06:24 | Day surgery (SDC) | payer OTHER ==
[2021-04-16] VITALS (11 sets, daily range): BP systolic 111–127; BP diastolic 65–96
[~2021-04-16] VITALS: Ht 160 cm; Wt 130.6 kg
[~2021-04-16 06:24] MED LIST changes: +FAMO-119 PO; +PANT40TA52 PO
[2021-04-16] MEDS ORDERED: ceFAZolin 2 GM IV Premixed 50 ML IV ONE (06:30)
[2021-04-16] MEDS ORDERED: ceFAZolin 2 GM IV Premixed 50 ML ONE (06:37)
[2021-04-16] MEDS: LACTATED RINGERS 1,000 ML IV PRN ×2 (06:54→09:15)
[2021-04-16 07:12] LABS: BASOPHILS # (AUTO) 0.1 10^3/uL (0.0-0.1); BASOPHILS % (AUTO) 1 % (0-10); EOSINOPHILS # (AUTO) 0.6 10^3/uL (0.0-0.3); EOSINOPHILS % (AUTO) 6 % (0-10); HEMATOCRIT 36 % (35-52); HEMOGLOBIN 11.3 g/dL (11.5-16.0); LYMPHOCYTES # (AUTO) 2.3 10^3/uL (1.0-4.0); LYMPHOCYTES % (AUTO) 22 % (12-44); MEAN CORPUSCULAR HEMOGLOBIN 27 pg (25-34); MEAN CORPUSCULAR HGB CONC 31 g/dL (32-36); MEAN CORPUSCULAR VOLUME 85 fL (80-99); MEAN PLATELET VOLUME 9.9 fL (9.0-12.2); MONOCYTES % (AUTO) 10 % (0-12); NEUTROPHILS # (AUTO) 6.5 10^3/uL (1.8-7.8); NEUTROPHILS % (AUTO) 62 % (42-75); PLATELET COUNT 380 10^3/uL (130-400); WHITE BLOOD COUNT 10.5 10^3/uL (4.3-11.0)
[2021-04-16] MEDS ORDERED: ONDANSETRON 4 MG/2 ML (SDV) Z0FRAN IV ONE (07:15)
[2021-04-16] MEDS ORDERED: MIDAZOLAM 2 MG/2 ML (VERSED) VIAL IV ONE (07:15)
[2021-04-16] MEDS ORDERED: FAMOTIDINE 20MG/2ML IV (PEPCID) IV ONE (07:15)
[2021-04-16] MEDS ORDERED: LIDOCAINE/EPI 1%-1:100,000 (XYLOCAINE) 20ML ONE (07:21)
[2021-04-16] MEDS ORDERED: ONDANSETRON 4 MG/2 ML (SDV) Z0FRAN ONE ×2 (07:24→07:44)
[2021-04-16] MEDS ORDERED: MIDAZOLAM 2 MG/2 ML (VERSED) VIAL ONE ×2 (07:24→07:40)
[2021-04-16] MEDS ORDERED: FAMOTIDINE 20MG/2ML IV (PEPCID) ONE (07:25)
[2021-04-16] MEDS ORDERED: fentaNYL INJ 100 MCG/2 ML AMP ONE (07:40)
[2021-04-16] MEDS ORDERED: proPOfol 200 MG/20 ML (DIPRIVAN) VIAL IV ONE ×2 (07:40→07:44)
[2021-04-16] MEDS ORDERED: ROCURONIUM 10 MG/ML 5 ML SYRINGE IV ONE (07:44)
[2021-04-16] MEDS ORDERED: SUCCINYLCHOLINE INJ 100 MG/5 ML SYR/VIAL ONE (07:44)
[2021-04-16] MEDS ORDERED: LIDOCAINE PF 2% 5 ML (XYLOCAINE) VIAL ONE (07:45)
--- NOTE | 2021-04-16 08:10 | Progress Note-Pre Operative ---
Pre-Operative Progress Note H&P Reviewed The H&P was reviewed, patient examined and no changes noted. Date Seen by Provider: Apr 16, 2021 Time Seen by Provider: 07:53 Date H&P Reviewed: Apr 16, 2021 Time H&P Reviewed: 07:53 Pre-Operative Diagnosis: incisional hernia JOSEPH BAILON DO Apr 16, 2021 08:10
[2021-04-16] MEDS ORDERED: DOCU-143 PO (09:39)
[2021-04-16] MEDS ORDERED: ACHD5005 PO (09:39)
--- NOTE | 2021-04-16 09:40 | Discharge Inst-Simple/Standard ---
Discharge Inst-Standard Discharge Medications New, Converted or Re-Newed RX: Transmitted to Pharmacy Patient Instructions/Follow Up Plan of Care/Instructions/FU: 2-3 weeks Renzo Activity as Tolerated: No Discharge Diet: Regular Diet Other Inst to Patient Follow up Appt: Make appointment for 2-3 week. Instructions: No lifting greater than 10 pounds. No strenuous activity. May shower in 24 hours, no tub bath or soaking. Use incentive spirometer at home as directed. No Smoking Skin/Wound Care: You have special glue over your incision that will fall off on it's own. Symptoms to Report: Appetite Changes, Extremity Discoloration, Numbness/Tingling, Swelling Increas ed, Bleeding Excessive, Eyesight Changes, Pain Increased, Urine Color Change, Constipation(Persistent), Fever over 101 degree F, Pain/Pressure in chest, Urinating Difficulty, Cough Up/Vomit Blood, Heart Beat Irreg/Pounding, Pain/Pressure in jaw, Vaginal Bleeding Increase, Cramps in feet or legs, Lightheadedness, Pain/Pressure in shoulder, Diarrhea(Persistent), Memory Changes Suddenly, Questions/Concerns, Weight gain consecutive days, Dizziness/Fainting, Nausea/Vomiting, Shortness of Breath, Weight gain over 2 pounds If questions or concerns contact your physician Or seek help at emergency department. JOSEPH BAILON DO Apr 16, 2021 09:40
[2021-04-16] MEDS ORDERED: ONDANSETRON 4 MG/2 ML (SDV) Z0FRAN IVP PRN (09:45)
[2021-04-16] MEDS ORDERED: morphine INJ 10 MG/ML 1ML (SYR OR VIAL) IVP ONE (09:45)
[2021-04-16] MEDS ORDERED: HYDROmorphone 2 MG/ML VIAL (DILAUDID) IV ONE (09:45)
[2021-04-16] MEDS ORDERED: SEVOFLURANE (ULTANE) 15 ML INHAL SOLN ONE (09:47)
--- NOTE | 2021-04-16 10:24 | Anesthesia-General Post-Op ---
General Patient Condition Mental Status/LOC: Same as Preop Cardiovascular: Satisfactory Nausea/Vomiting: Absent Respiratory: Satisfactory Pain: Controlled Complications: Absent Post Op Complications Complications None Follow Up Care/Instructions Patient Instructions None needed. Anesthesia/Patient Condition Patient Condition Patient is doing well, no complaints, stable vital signs, no apparent adverse anesthesia problems. MAKAYLA GUZMAN DO Apr 16, 2021 10:23
--- NOTE | 2021-04-16 10:29 | Progress Note-Post Operative ---
Post-Operative Progess Note Surgeon (s)/On Site Soil Evaluator (s) Surgeon JOSEPH BAILON DO On Site Soil Evaluator: Dr. Weir to assist in retraction dissection and closure. Pre-Operative Diagnosis incisional hernia Post-Operative Diagnosis incarcerated omentum incisional hernia Procedure & Operative Findings Date of Procedure 04/16/21 Procedure Performed/Findings PROCEDURE: Laparoscopic incisional hernia repair with mesh. COMPLICATIONS: None. INDICATIONS: The patient is a 25, female with an incarcerated incisional hernia, which has continued to increase in size and cause discomfort. The patient was explained the risk and benefits of the procedure and wished to proceed with the procedure. Consent was signed on the chart. DESCRIPTION OF PROCEDURE: The patient was taken into the operating suite, prepped and draped in sterile fashion. Surgical pause was performed. Local anesthetic was infiltrated in left upper quadrant. A 15 blade scalpel was used to make a small skin incision. Cautery was used to dissect down to the fascia, which was then scored and divided the muscle, went through the posterior sheath and a balloon trocar was inserted into the abdomen. The abdomen was then insufflated. Omentum incarcerated through defect. A 5 mm trocar was placed in the right lower quadrant and a 5 mm trocar was placed in left lower quadrant. Omentum reduced and ligasure used to take down the fat pad and falciform ligament. The defect was then closed using 0 Vicryl with a Escobar-Andressa.Echo Ventralight mesh was then inserted in the abdomen grabbed through the stab incision. The balloon was inflated on the mesh. Circumferential tacks were placed with a SecureStrap Tacker. The balloon was then removed and inner crown was created as well. The mesh was tacked with pressure being decreased. The 12 mm fascial defect was then closed using 0 Vicryl. The abdomen was then desufflated,the trocars were removed. The skin was then closed using 4-0 Monocryl in a running subcuticular fashion. The abdomen was washed and dried and Skin Affix was placed over the incisions. The patient tolerated procedure well without any complications. She was taken to recovery room in stable condition. Anesthesia Type general Estimated Blood Loss Estimated blood loss (mL): minimal Specimens/Packing Specimens Removed na JOSEPH BALION DO Apr 16, 2021 10:29
[2021-04-16] MEDS ORDERED: HYDROcodone/APAP 5 MG/325 MG (LORTAB) TAB PO ONE (11:00)
== END 2021-04-16 12:15 | disposition home or self-care (01) ==
LOC: SDC 06:24
PROVIDERS: ATTEND Surgery
DX: K43.0 Incisional hernia with obstruction, without gangrene (principal); K21.9 Gastro-esophageal reflux disease without esophagitis; J45.909 Unspecified asthma, uncomplicated; I10 Essential (primary) hypertension; E66.01 Morbid (severe) obesity due to excess calories; Z90.89 Acquired absence of other organs; Z68.43 Body mass index [BMI] 50.0-59.9, adult; Z90.49 Acquired absence of other specified parts of digestive tract; Z79.899 Other long term (current) drug therapy; Z80.9 Family history of malignant neoplasm, unspecified
CPT/HCPCS: 49655; 84703; 85025; 87081; C1781; 36415

== ENCOUNTER 2021-11-30 21:13 | Emergency (ER) | payer OTHER ==
[~2021-11-30] VITALS: Ht 160 cm; Wt 134.7 kg
[~2021-11-30 21:13] MED LIST changes: +ACHD5005 PO; +DOCU-143 PO
[2021-11-30] MEDS ORDERED: ACETAMINOPHEN 500 MG TAB (TYLENOL) PO ONE (22:30)
[2021-11-30] MEDS ORDERED: LIDOCAINE 2% VISCOUS 15 ML UDC PO ONE (22:30)
[2021-11-30] MEDS ORDERED: ONDANSETRON 4 MG/2 ML (SDV) Z0FRAN IVP ONE (22:30)
[2021-11-30] MEDS ORDERED: ANTACID SUSP 30 ML UDC (MYLANTA) PO ONE (22:30)
--- NOTE | 2021-11-30 22:33 | ED Abdominal Pain ---
General Stated Complaint: N/V ABD PAIN Source of Information: Patient Exam Limitations: No Limitations History of Present Illness Date Seen by Provider: Nov 30, 2021 Time Seen by Provider: 21:15 Initial Comments 25-year-old female with past medical history of GERD coming in due to upper abdominal burning pain radiating up her chest with nausea and one episode of nonbloody nonbilious vomiting. Going on for over 24 hours. Has been constant, nothing seems to make it better or worse. Does not have her gallbladder or her appendix. LMP was 1 week ago. She says this is pretty typical for her reflux when it is bad. Had a normal bowel movement today Allergies and Home Medications Allergies Coded Allergies: codeine (Verified Allergy, Intermediate, 09/27/13) albuterol (Verified Allergy, Unknown, TACHYCARDIA, 02/19/20) Patient Home Medication List Home Medication List Reviewed: Yes Docusate Sodium (Colace) 100 Mg Capsule, 100 MG PO BID Prescribed by: JOSEPH BAILON on 04/16/21 0939 Famotidine (Pepcid) 20 Mg Tablet, 20 MG PO BID, (Reported) Entered as Reported by: BRIANA CANTRELL on 04/09/21 1329 Fexofenadine HCl (Luz Allergy) 180 Mg Tablet, 180 MG PO DAILY, (Reported) Entered as Reported by: BRIANA CANTRELL on 02/19/20 1342 Hydrocodone/Acetaminophen (Hydrocodone-Acetamin 5-325 mg) 1 Each Tablet, 1 EACH PO Q4H PRN for PAIN-MODERATE (5-7) Prescribed by: JOSEPH BAILON on 04/16/21 0940 Metoprolol Succinate (Metoprolol Succinate) 25 Mg Tab.er.24h, 25 MG PO DAILY, (Reported) Entered as Reported by: BRIANA CANTRELL on 02/19/20 1342 Pantoprazole Sodium (Pantoprazole Sodium) 40 Mg Tablet.dr, 40 MG PO DAILY, (Reported) Entered as Reported by: BRIANA CANTRELL on 04/09/21 1329 Sucralfate (Carafate) 1 Gm Tablet, 1 GM PO TID Prescribed by: NICHOLAS VILLASENOR on 11/30/21 6255 Review of Systems Review of Systems Constitutional: No chills EENTM: No Blurred Vision Respiratory: Denies Cough Cardiovascular: Denies Chest Pain Gastrointestinal: Abdominal Pain; Denies Diarrhea; Nausea Genitourinary: Denies Burning Musculoskeletal: no symptoms reported Skin: no symptoms reported Psychiatric/Neurological: No Symptoms Reported Endocrine: No Symptoms Reported Hematologic/Lymphatic: No Symptoms Reported All Other Systems Reviewed Negative Unless Noted: Yes Past Gcqklan-Mrtbcw-Mmmyig Hx Patient Social History Tobacco Use?: No Immunizations Up To Date PED Vaccines UTD: No Seasonal Allergies Seasonal Allergies: Yes Past Medical History Surgeries: Yes (TEETH) Appendectomy, Gallbladder Respiratory: Yes Asthma Currently Using CPAP: No Currently Using BIPAP: No Cardiac: Yes Hypertension Neurological: No Genitourinary: No UTI-Chronic Gastrointestinal: Yes (incisional hernia) Gastroesophageal Reflux Musculoskeletal: No Endocrine: No HEENT: No Cancer: No Psychosocial: No Integumentary: No Blood Disorders: No Adverse Reaction/Blood Tranf: No Family Medical History Cancer 03 FATHER (prostate) 03 MOTHER (thyroid) Family history: Thyroid disorder 03 MOTHER (thyroid cancer) Prostate cancer Physical Exam Vital Signs Vital Signs - First Documented 11/30/21 22:11 Temp 37.1 Pulse 102 Resp 20 B/P (MAP) 140/82 (101) Pulse Ox 98 O2 Delivery Room Air Capillary Refill : Height/Weight/BMI Height: 5'4" Weight: 205lbs. oz. 92.109573fa; 51.01 BMI Method:Stated General Appearance: WD/WN, no apparent distress HEENT: PERRL/EOMI, normal ENT inspection, pharynx normal Neck: non-tender, full range of motion, supple, normal inspection Respiratory: chest non-tender, lungs clear, normal breath sounds, no respiratory distress Cardiovascular: regular rate, rhythm, no edema, no murmur Gastrointestinal: normal bowel sounds, soft; No distended, No guarding, No re bound; tenderness (Mild epigastric tenderness) Extremities: normal range of motion, non-tender, normal inspection, no pedal edema, no calf tenderness Back: normal inspection, no CVA tenderness, no vertebral tenderness Neurologic/Psychiatric: no motor/sensory deficits, alert, normal mood/affect Skin: normal color, warm/dry Lymphatic: no adenopathy Progress/Results/Core Measures Results/Orders Lab Results Laboratory Tests Test 11/30/21 22:16 11/30/21 22:45 Range/Units White Blood Count 12.5 H 4.3-11.0 10^3/uL Red Blood Count 4.66 3.80-5.11 10^6/uL Hemoglobin 12.3 11.5-16.0 g/dL Hematocrit 39 35-52 % Mean Corpuscular Volume 84 80-99 fL Mean Corpuscular Hemoglobin 26 25-34 pg Mean Corpuscular Hemoglobin Concent 31 L 32-36 g/dL Red Cell Distribution Width 17.8 H 10.0-14.5 % Platelet Count 408 H 130-400 10^3/uL Mean Platelet Volume 10.1 9.0-12.2 fL Immature Granulocyte % (Auto) 1 % Neutrophils (%) (Auto) 86 H 42-75 % Lymphocytes (%) (Auto) 5 L 12-44 % Monocytes (%) (Auto) 5 0-12 % Eosinophils (%) (Auto) 3 0-10 % Basophils (%) (Auto) 0 0-10 % Neutrophils # (Auto) 10.8 H 1.8-7.8 10^3/uL Lymphocytes # (Auto) 0.7 L 1.0-4.0 10^3/uL Monocytes # (Auto) 0.7 0.0-1.0 10^3/uL Eosinophils # (Auto) 0.3 0.0-0.3 10^3/uL Basophils # (Auto) 0.1 0.0-0.1 10^3/uL Immature Granulocyte # (Auto) 0.1 0.0-0.1 10^3/uL Neutrophils % (Manual) 88 % Lymphocytes % (Manual) 5 % Monocytes % (Manual) 5 % Eosinophils % (Manual) 2 % Clumped Platelets Blood Morphology Comment NORMAL Sodium Level 138 135-145 MMOL/L Potassium Level 4.3 3.6-5.0 MMOL/L Chloride Level 107 98-107 MMOL/L Carbon Dioxide Level 19 L 21-32 MMOL/L Anion Gap 12 5-14 MMOL/L Blood Urea Nitrogen 12 7-18 MG/DL Creatinine 0.76 0.60-1.30 MG/DL Estimat Glomerular Filtration Rate 111 BUN/Creatinine Ratio 16 Glucose Level 89 70-105 MG/DL Calcium Level 8.8 8.5-10.1 MG/DL Corrected Calcium 9.1 8.5-10.1 MG/DL Total Bilirubin 0.3 0.1-1.0 MG/DL Aspartate Amino Transf (AST/SGOT) 12 5-34 U/L Alanine Aminotransferase (ALT/SGPT) 13 0-55 U/L Alkaline Phosphatase 85 40-136 U/L Total Protein 7.4 6.4-8.2 GM/DL Albumin 3.6 3.2-4.5 GM/DL Lipase 9 8-78 U/L Urine Color YELLOW Urine Clarity CLEAR Urine pH 7.0 5-9 Urine Specific [place] 1.015 L 1.016-1.022 Urine Protein NEGATIVE NEGATIVE Urine Glucose (UA) NEGATIVE NEGATIVE Urine Ketones NEGATIVE NEGATIVE Urine Nitrite NEGATIVE NEGATIVE Urine Bilirubin NEGATIVE NEGATIVE Urine Urobilinogen 0.2 < = 1.0 MG/DL Urine Leukocyte Esterase NEGATIVE NEGATIVE Urine RBC (Auto) NEGATIVE NEGATIVE Urine RBC NONE /HPF Urine WBC 0-2 /HPF Urine Squamous Epithelial Cells 0-2 /HPF Urine Renal Epithelial Cells NONE /HPF Urine Crystals NONE /LPF Urine Bacteria FEW H /HPF Urine Casts NONE /LPF Urine Mucus NEGATIVE /LPF Urine Culture Indicated NO My Orders Orders - NICHOLAS VILLASENOR MD Comprehensive Metabolic Panel (11/30/21 22:28) Lipase (11/30/21 22:28) Ua Culture If Indicated (11/30/21 22:28) Cbc With Automated Diff (11/30/21 22:28) Acetaminophen Tablet (Tylenol Tablet) (11/30/21 22:30) Ondansetron Injection (Zofran Injectio (11/30/21 22:30) Lidocaine 2% Viscous 15 Ml (Xylocaine Vi (11/30/21 22:30) Antacid Suspension (Mylanta Suspension (11/30/21 22:30) Manual Differential (11/30/21 22:16) Medications Given in ED Current Medications Medications Dose Ordered Sig/Dusty Route Start Time Stop Time Status Last Admin Dose Admin Acetaminophen 1,000 mg ONCE ONCE PO 11/30/21 22:30 11/30/21 22:31 DC 11/30/21 22:56 1,000 MG Al Hydrox/Mg Hydrox/Simethicone 30 ml ONCE ONCE PO 11/30/21 22:30 11/30/21 22:31 DC 11/30/21 22:57 30 ML Lidocaine HCl 15 ml ONCE ONCE PO 11/30/21 22:30 11/30/21 22:31 DC 3/21/22 22:57 15 ML Ondansetron HCl 4 mg ONCE ONCE IVP 11/30/21 22:30 11/30/21 22:31 DC 11/30/21 22:57 4 MG Vital Signs/I&O 11/30/21 11/30/21 22:11 23:55 Temp 37.1 Pulse 102 84 Resp 20 16 B/P (MAP) 140/82 (101) 143/87 Pulse Ox 98 100 O2 Delivery Room Air Progress Progress Note : Progress Note 25-year-old female with above history coming in due to epigastric burning pain. ABCs were intact and vitals were stable on presentation. Physical exam reassuring except for some mild tenderness in her epigastric region but no signs of peritonitis. She was given a GI cocktail given her history of GERD. Basic labs including LFTs and lipase ordered. Labs are reassuring. She is better after GI cocktail. Repeat abdominal exam reassuring as well with no real tenderness. I believe she stable for discharge with outpatient follow-up. She was sent home with strict return precautions. Departure Impression Primary Impression: Epigastric abdominal pain Disposition: HOME, SELF-CARE Condition: Stable Departure-Patient Inst. Decision time for Depature: 23:18 Referrals: DAVID METCALF MD (PCP/Family) Primary Care Physician Patient Instructions: Acid Reflux, Adult and Adolescent ED Add. Discharge Instructions: This is likely your acid reflux causing your issues. I have added a medication that can kind of help with this. I also recommend taking [id number] Maalox max which can help coat your stomach and help with the pain. He had significant pain in the next couple days I recommend calling your regular doctor for follow-up. Scripts Sucralfate (Carafate) 1 Gm Tablet 1 GM PO TID for 14 Days, #42 TAB Prov: NICHOLAS VILLASENOR MD 11/30/21 Work/School Note: Work Release Form Date Seen in the Emergency Department: Nov 30, 2021 Return to Work: Dec 02, 2021 Restrictions: No Restrictions NICHOLAS VILLASENOR MD Nov 30, 2021 22:33
[2021-11-30 22:34] LABS: BASOPHILS # (AUTO) 0.1 10^3/uL (0.0-0.1); BASOPHILS % (AUTO) 0 % (0-10); EOSINOPHILS # (AUTO) 0.3 10^3/uL (0.0-0.3); EOSINOPHILS % (AUTO) 3 % (0-10); HEMATOCRIT 39 % (35-52); HEMOGLOBIN 12.3 g/dL (11.5-16.0); LYMPHOCYTES # (AUTO) 0.7 10^3/uL (1.0-4.0); LYMPHOCYTES % (AUTO) 5 % (12-44); MEAN CORPUSCULAR HEMOGLOBIN 26 pg (25-34); MEAN CORPUSCULAR HGB CONC 31 g/dL (32-36); MEAN CORPUSCULAR VOLUME 84 fL (80-99); MEAN PLATELET VOLUME 10.1 fL (9.0-12.2); MONOCYTES # (AUTO) 0.7 10^3/uL (0.0-1.0); MONOCYTES % (AUTO) 5 % (0-12); NEUTROPHILS # (AUTO) 10.8 10^3/uL (1.8-7.8); NEUTROPHILS % (AUTO) 86 % (42-75); PLATELET COUNT 408 10^3/uL (130-400); WHITE BLOOD COUNT 12.5 10^3/uL (4.3-11.0)
[2021-11-30 22:39] LABS: ALBUMIN 3.6 GM/DL (3.2-4.5); POTASSIUM 4.3 MMOL/L (3.6-5.0)
[2021-11-30 22:41] LABS: CALCIUM 8.8 MG/DL (8.5-10.1)
[2021-11-30 22:42] LABS: TOTAL PROTEIN 7.4 GM/DL (6.4-8.2)
[2021-11-30 22:44] LABS: BILIRUBIN,TOTAL 0.3 MG/DL (0.1-1.0)
[2021-11-30 22:46] LABS: CREATININE SERUM 0.76 MG/DL (0.60-1.30)
[2021-11-30 22:51] LABS: BILIRUBIN,URINE NEGATIVE (NEGATIVE); CLARITY,URINE CLEAR; COLOR,URINE YELLOW; GLUCOSE, URINE (UA) NEGATIVE (NEGATIVE); KETONES,URINE NEGATIVE (NEGATIVE); LEUKOCYTE ESTERASE ,URINE NEGATIVE (NEGATIVE); NITRITE,URINE NEGATIVE (NEGATIVE); PROTEIN,URINE NEGATIVE (NEGATIVE)
[2021-11-30 23:03] LABS: EOSINOPHILS % (MANUAL) 2 %; LYMPHOCYTES % (MANUAL) 5 %; MONOCYTES % (MANUAL) 5 %; NEUTROPHILS % (MANUAL) 88 %; RBC MORPH NORMAL
[2021-11-30 23:10] LABS: BACTERIA,URINE FEW /HPF; SQUAMOUS EPITHELIAL CELL,UR 0-2 /HPF; WBC,URINE 0-2 /HPF
[2021-11-30] MEDS ORDERED: SUCR1TAB36 PO ×2 (23:20→23:24)
[2021-11-30 23:55] VITALS: BP 143/87
== END 2021-11-30 23:59 | disposition home or self-care (01) ==
LOC: EDUNIT# 21:13 → ER 21:16
DX: R10.13 Epigastric pain (principal)
CPT/HCPCS: 36415; 80053; 81000; 83690; 85007; 85027; 96374; 99283

== ENCOUNTER 2022-02-12 14:07 | Emergency (ER) | payer OTHER ==
[~2022-02-12] VITALS: Ht 160 cm; Wt 122.3 kg
--- NOTE | 2022-02-12 14:25 | ED Abdominal Pain ---
General Stated Complaint: R SIDE ABD PAIN - NAUSEA Source of Information: Patient Exam Limitations: No Limitations History of Present Illness Date Seen by Provider: Feb 12, 2022 Time Seen by Provider: 14:22 Initial Comments Patient is a 26-year-old female with a history of cholecystectomy, appendectomy presents ED with lower abdominal pain left lower quad abdominal pain. Symptoms started 4 days ago. Described as sharp and intermittent. Not worse with any type of movement. Denies of any urinary symptoms. She reports mucousy stool without any blood. Denies eating anything differently or recent antibiotic use. Denies of any odor or smell of her stool. Nausea without vomiting or hematemesis. She states she just recently finished her menstrual cycle 4 days ago. Not concern for sexual transmitted infections, UTI or . Patient states that she is concerned for possible diverticulitis with a strong family history. Denies history inflammatory bowel disease. Subjective fever. Denies flank pain, headache, dizziness, shortness of breath, cough, vomiting, diarrhea. Allergies and Home Medications Allergies Coded Allergies: codeine (Verified Allergy, Intermediate, 09/27/13) albuterol (Verified Allergy, Unknown, TACHYCARDIA, 02/19/20) Patient Home Medication List Home Medication List Reviewed: Yes Docusate Sodium (Colace) 100 Mg Capsule, 100 MG PO BID Prescribed by: JOSEPH BAILON on 04/16/21 0939 Famotidine (Pepcid) 20 Mg Tablet, 20 MG PO BID, (Reported) Entered as Reported by: BRIANA CANTRELL on 04/09/21 1329 Fexofenadine HCl (Luz Allergy) 180 Mg Tablet, 180 MG PO DAILY, (Reported) Entered as Reported by: BRIANA CANTRELL on 02/19/20 1342 Hydrocodone/Acetaminophen (Hydrocodone-Acetamin 5-325 mg) 1 Each Tablet, 1 EACH PO Q4H PRN for PAIN-MODERATE (5-7) Prescribed by: JOSEPH BAILON on 04/16/21 0940 Metoprolol Succinate (Metoprolol Succinate) 25 Mg Tab.er.24h, 25 MG PO DAILY, (Reported) Entered as Reported by: BRIANA CANTRELL on 02/19/20 1342 Pantoprazole Sodium (Pantoprazole Sodium) 40 Mg Tablet.dr, 40 MG PO DAILY, (Reported) Entered as Reported by: BRIANA CANTRELL on 04/09/21 1329 Sucralfate (Carafate) 1 Gm Tablet, 1 GM PO TID Prescribed by: NICHOLAS VILLASENOR on 11/30/21 6106 Review of Systems Review of Systems Constitutional: No chills, No malaise, No weakness EENTM: No Blurred Vision, No Double Vision Respiratory: Denies Cough, Denies Shortness of Air, Denies SOA at Rest Cardiovascular: Denies Chest Pain Gastrointestinal: Abdominal Pain; Denies Constipated, Denies Diarrhea; Nausea; Denies Vomiting Genitourinary: Denies Burning, Denies Discharge Musculoskeletal: No back pain, No joint pain Skin: No change in color, No change in hair/nails Psychiatric/Neurological: Denies Anxiety, Denies Depressed All Other Systems Reviewed Negative Unless Noted: Yes Past Hpicuqn-Pupcbd-Kmybxw Hx Immunizations Up To Date PED Vaccines UTD: No First/Initial COVID19 Vaccinat: 2019 Second COVID19 Vaccination Peter: 2020 Third COVID19 Vaccination Date: 2020 Seasonal Allergies Seasonal Allergies: Yes Past Medical History Surgeries: Yes (TEETH) Appendectomy, Gallbladder Respiratory: Yes Asthma Currently Using CPAP: No Currently Using BIPAP: No Cardiac: Yes Hypertension Neurological: No Genitourinary: No UTI-Chronic Gastrointestinal: Yes (incisional hernia) Gastroesophageal Reflux Musculoskeletal: No Endocrine: No HEENT: No Cancer: No Psychosocial: No Integumentary: No Blood Disorders: No Adverse Reaction/Blood Tranf: No Family Medical History Cancer 03 FATHER (prostate) 03 MOTHER (thyroid) Family history: Thyroid disorder 03 MOTHER (thyroid cancer) Prostate cancer Physical Exam Vital Signs Vital Signs - First Documented 02/12/22 15:04 Temp 36.7 Pulse 118 Resp 20 B/P (MAP) 138/114 (122) Pulse Ox 97 O2 Delivery Room Air Capillary Refill : Height/Weight/BMI Height: 5'4" Weight: 205lbs. oz. 92.324934sq; 52.00 BMI Method:Stated General Appearance: WD/WN, no apparent distress HEENT: PERRL/EOMI, normal ENT inspection, TMs normal, pharynx normal Neck: non-tender, full range of motion, supple, normal inspection Respiratory: chest non-tender, lungs clear, normal breath sounds, no respiratory distress, no accessory muscle use Cardiovascular: regular rate, rhythm, no edema, no gallop, no JVD Gastrointestinal: normal bowel sounds, soft, no organomegaly, no pulsatile mass, tenderness (Suprapubic tenderness, left lower quadrant tenderness) Extremities: normal range of motion, non-tender, normal inspection Back: normal inspection, no CVA tenderness Neurologic/Psychiatric: pan dumper II-XII nml as tested, no motor/sensory deficits, alert, normal mood/affect, oriented x 3 Progress/Results/Core Measures Results/Orders Lab Results Laboratory Tests Test 02/12/22 14:46 02/12/22 15:40 Range/Units White Blood Count 10.3 4.3-11.0 10^3/uL Red Blood Count 4.49 3.80-5.11 10^6/uL Hemoglobin 12.0 11.5-16.0 g/dL Hematocrit 38 35-52 % Mean Corpuscular Volume 85 80-99 fL Mean Corpuscular Hemoglobin 27 25-34 pg Mean Corpuscular Hemoglobin Concent 32 32-36 g/dL Red Cell Distribution Width 15.9 H 10.0-14.5 % Platelet Count 384 130-400 10^3/uL Mean Platelet Volume 9.7 9.0-12.2 fL Immature Granulocyte % (Auto) 0 % Neutrophils (%) (Auto) 72 42-75 % Lymphocytes (%) (Auto) 15 12-44 % Monocytes (%) (Auto) 8 0-12 % Eosinophils (%) (Auto) 5 0-10 % Basophils (%) (Auto) 0 0-10 % Neutrophils # (Auto) 7.4 1.8-7.8 10^3/uL Lymphocytes # (Auto) 1.5 1.0-4.0 10^3/uL Monocytes # (Auto) 0.8 0.0-1.0 10^3/uL Eosinophils # (Auto) 0.5 H 0.0-0.3 10^3/uL Basophils # (Auto) 0.0 0.0-0.1 10^3/uL Immature Granulocyte # (Auto) 0.0 0.0-0.1 10^3/uL Sodium Level 140 135-145 MMOL/L Potassium Level 3.9 3.6-5.0 MMOL/L Chloride Level 106 98-107 MMOL/L Carbon Dioxide Level 25 21-32 MMOL/L Anion Gap 9 5-14 MMOL/L Blood Urea Nitrogen 8 7-18 MG/DL Creatinine 0.85 0.60-1.30 MG/DL Estimat Glomerular Filtration Rate 96 BUN/Creatinine Ratio 9 Glucose Level 90 70-105 MG/DL Calcium Level 8.9 8.5-10.1 MG/DL Corrected Calcium 9.1 8.5-10.1 MG/DL Total Bilirubin 0.3 0.1-1.0 MG/DL Aspartate Amino Transf (AST/SGOT) 14 5-34 U/L Alanine Aminotransferase (ALT/SGPT) 19 0-55 U/L Alkaline Phosphatase 97 40-136 U/L Total Protein 6.8 6.4-8.2 GM/DL Albumin 3.7 3.2-4.5 GM/DL Lipase 6 L 8-78 U/L Urine Color YELLOW Urine Clarity CLEAR Urine pH 6.0 5-9 Urine Specific [place] 1.020 1.016-1.022 Urine Protein NEGATIVE NEGATIVE Urine Glucose (UA) NEGATIVE NEGATIVE Urine Ketones NEGATIVE NEGATIVE Urine Nitrite NEGATIVE NEGATIVE Urine Bilirubin NEGATIVE NEGATIVE Urine Urobilinogen 0.2 < = 1.0 MG/DL Urine Leukocyte Esterase NEGATIVE NEGATIVE Urine RBC (Auto) NEGATIVE NEGATIVE Urine RBC NONE /HPF Urine WBC NONE /HPF Urine Squamous Epithelial Cells 0-2 /HPF Urine Crystals NONE /LPF Urine Bacteria NEGATIVE /HPF Urine Casts NONE /LPF Urine Mucus NEGATIVE /LPF Urine Culture Indicated NO Urine Test NEGATIVE NEGATIVE My Orders Orders - NICHOLAS GUZMAN PA Ua Culture If Indicated (02/12/22 14:17) Hcg,Qualitative Urine (02/12/22 14:17) Cbc With Automated Diff (02/12/22 14:21) Comprehensive Metabolic Panel (02/12/22 14:21) Lipase (02/12/22 14:21) Ct Abdomen/Pelvis W (02/12/22 14:21) Ketorolac Injection (Toradol Injection) (02/12/22 14:30) Ondansetron Injection (Zofran Injectio (02/12/22 14:30) Iohexol Injection (Omnipaque 350 Mg/Ml 1 (02/12/22 16:15) Sodium Chloride Flush (Catheter Flush Sy (02/12/22 16:15) Ns (Ivpb) (Sodium Chloride 0.9% Ivpb Bag (02/12/22 16:15) Medications Given in ED Current Medications Medications Dose Ordered Sig/Dusty Route Start Time Stop Time Status Last Admin Dose Admin Iohexol 100 ml ONCE ONCE IV 02/12/22 16:15 02/12/22 16:16 DC 02/12/22 16:20 100 ML Ketorolac Tromethamine 30 mg ONCE ONCE IVP 02/12/22 14:30 02/12/22 14:31 DC 02/12/22 14:48 30 MG Ondansetron HCl 4 mg ONCE ONCE IVP 02/12/22 14:30 02/12/22 14:31 DC 02/12/22 14:48 4 MG Sodium Chloride 10 ml NEEDED PRN IV 02/12/22 16:15 02/12/22 16:20 10 ML Sodium Chloride 100 ml ONCE ONCE IV 02/12/22 16:15 02/12/22 16:16 DC 02/12/22 16:20 80 ML Vital Signs/I&O 02/12/22 15:04 Temp 36.7 Pulse 118 Resp 20 B/P (MAP) 138/114 (122) Pulse Ox 97 O2 Delivery Room Air Departure Communication (PCP) Patient with lower abdominal and left lower quadrant pain. History of appendectomy and cholecystectomy. Intermittent sharp pain. No radiation. Urinalysis was negative for infection or hematuria. Lab work was otherwise been reassuring. Discussed with patient nonspecific abdominal pain with unremarkable lab work. She is concerned as there is a strong family history of ulcerative colitis and diverticulitis. Discussed with patient reassuring lab work highly unlikely. Should she states that she has mucousy stool that she is concerned. Discussed with patient imaging may be unremarkable but will order for further evaluation. CT scan was negative for acute abnormality. No hydronephrosis, nephrolithiasis. Not currently on her menstrual cycle. With finished 4 days ago. Not concern for sexual transmitted affection. No vaginal discharge. She does not appear in acute distress. Was given Toradol with improvement of pain. Discussed anti-inflammatories at home. If any worsening symptoms return back to ED for further evaluation. She was given a dose of Zofran for nausea. If symptoms progress with mucousy stool or developing dark tarry stool with odor may consider stool culture for other etiologies. Continue with conservative treatment at this time. Outpatient follow-up with primary care physician for further evaluation Impression Primary Impression: Abdominal pain Disposition: HOME, SELF-CARE Condition: Stable Departure-Patient Inst. Decision time for Depature: 16:37 Referrals: DAVID METCALF MD (PCP/Family) Primary Care Physician SHEFALI EDWARDS MD Patient Instructions: Abdominal Pain, Adult ED Add. Discharge Instructions: Recommend anti-inflammatories at home. If any worsening symptoms recommend follow-up with your primary care physician for further evaluation. If continue mucousy stool with dark tarry stool or diarrhea may warrant to get stool cul tures or further GI follow-up. NICHOLAS GUZMAN Feb 12, 2022 14:25
[2022-02-12] MEDS ORDERED: KETOROLAC 30 MG/ML VIAL IVP ONE (14:30)
[2022-02-12] MEDS ORDERED: ONDANSETRON 4 MG/2 ML (SDV) Z0FRAN IVP ONE (14:30)
[2022-02-12 14:52] LABS: BASOPHILS % (AUTO) 0 % (0-10); EOSINOPHILS # (AUTO) 0.5 10^3/uL (0.0-0.3); EOSINOPHILS % (AUTO) 5 % (0-10); HEMATOCRIT 38 % (35-52); LYMPHOCYTES # (AUTO) 1.5 10^3/uL (1.0-4.0); LYMPHOCYTES % (AUTO) 15 % (12-44); MEAN CORPUSCULAR HEMOGLOBIN 27 pg (25-34); MEAN CORPUSCULAR HGB CONC 32 g/dL (32-36); MEAN CORPUSCULAR VOLUME 85 fL (80-99); MEAN PLATELET VOLUME 9.7 fL (9.0-12.2); MONOCYTES # (AUTO) 0.8 10^3/uL (0.0-1.0); MONOCYTES % (AUTO) 8 % (0-12); NEUTROPHILS # (AUTO) 7.4 10^3/uL (1.8-7.8); NEUTROPHILS % (AUTO) 72 % (42-75); PLATELET COUNT 384 10^3/uL (130-400); WHITE BLOOD COUNT 10.3 10^3/uL (4.3-11.0)
[2022-02-12 15:11] LABS: ALBUMIN 3.7 GM/DL (3.2-4.5); POTASSIUM 3.9 MMOL/L (3.6-5.0)
[2022-02-12 15:12] LABS: CALCIUM 8.9 MG/DL (8.5-10.1)
[2022-02-12 15:14] LABS: TOTAL PROTEIN 6.8 GM/DL (6.4-8.2)
[2022-02-12 15:16] LABS: BILIRUBIN,TOTAL 0.3 MG/DL (0.1-1.0)
[2022-02-12 15:17] LABS: CREATININE SERUM 0.85 MG/DL (0.60-1.30)
[2022-02-12 15:47] LABS: BILIRUBIN,URINE NEGATIVE (NEGATIVE); CLARITY,URINE CLEAR; COLOR,URINE YELLOW; GLUCOSE, URINE (UA) NEGATIVE (NEGATIVE); KETONES,URINE NEGATIVE (NEGATIVE); LEUKOCYTE ESTERASE ,URINE NEGATIVE (NEGATIVE); NITRITE,URINE NEGATIVE (NEGATIVE); PROTEIN,URINE NEGATIVE (NEGATIVE)
[2022-02-12 15:53] LABS: BACTERIA,URINE NEGATIVE /HPF; SQUAMOUS EPITHELIAL CELL,UR 0-2 /HPF
[2022-02-12] MEDS ORDERED: NS 100 ML (IVPB) BAG IV ONE (16:15)
[2022-02-12] MEDS ORDERED: IOHEXOL 350 MG/ML 100 ML (OMNIPAQUE 350) VIAL IV ONE (16:15)
[2022-02-12] MEDS ORDERED: CATHETER FLUSH 10 ML SYR IV PRN (16:15)
--- NOTE | 2022-02-12 16:31 | Diagnostic Imaging Report ---
PROCEDURE: CT abdomen and pelvis with contrast. TECHNIQUE: Multiple contiguous axial images were obtained through the abdomen and pelvis after administration of intravenous contrast. Auto Exposure Controls were utilized during the CT exam to meet ALARA standards for radiation dose reduction. All CT scans use one or more of the following dose optimizing techniques: automated exposure control, MA and/or KvP adjustment based on patient size and exam type or iterative reconstruction. INDICATION: Left lower quadrant pain. COMPARED to 10/31/2018 FINDINGS: The uterus, adnexa and unopacified urinary bladder are unremarkable. There is prior appendectomy. There is no diverticulitis. There is no small or large bowel obstruction. There is chronic either persistent lobation or renal cortical scarring with volume loss involving the left greater than right kidneys. This is no hydroureteronephrosis and no radiopaque stone. No perinephric or periureteric edema or stranding. There is no pneumatosis. There is no free gas. The urinary bladder was low in volume but appeared unremarkable. There is a supraumbilical fatty abdominal wall hernia, noninflamed. The gallbladder surgically absent. There is no pathological distention of the bile ducts. Spleen, adrenals and pancreas were unremarkable. The aorta is patent and nonaneurysmal. IMPRESSION: 1. Prior appendectomy. 2. No bowel, biliary or urinary tract obstruction. No inflammatory process or acute abnormalities. Normal adnexa. 3. Some chronic left renal atrophy and likely areas of cortical scarring and superimposed persistent lobation with left renal volume loss greater than right. No hydronephrosis or acute appearing urinary tract pathology. Dictated by: Dictated on workstation # [id number]
[2022-02-12 16:42] VITALS: BP 108/55
== END 2022-02-12 16:47 | disposition home or self-care (01) ==
LOC: EDUNIT# 14:07 → ER 14:08
DX: R10.32 Left lower quadrant pain (principal); R11.0 Nausea; Z90.49 Acquired absence of other specified parts of digestive tract; Z32.02 Encounter for pregnancy test, result negative
CPT/HCPCS: 36415; 74177; 80053; 81000; 83690; 84703; 85025